=== PATIENT | male | born 1970 | race Caucasian/White ===

== ENCOUNTER 2018-10-20 10:14 | Inpatient (IN) ==
[2018-10-20] MEDS ORDERED: ASPIRIN 325 MG TABLET PO STA (10:48)
[2018-10-20] MEDS ORDERED: ONDANSETRON 4 MG/2 ML VIAL ONE (11:21)
[2018-10-20] MEDS ORDERED: ONDANSETRON 4 MG/2 ML VIAL IV STA (11:35)
[2018-10-20 11:50] LABS: Albumin 3.6 G/DL (3.4-5.0); Bilirubin,Total 8.3 MG/DL (0.2-1.0); Calcium 8.6 MG/DL (8.5-10.1); Osmolality,Calculated 254.4 MOS/KG (273-304); Potassium 3.4 MMOL/L (3.5-5.1); Total Protein 7.2 G/DL (6.4-8.3)
[2018-10-20 11:56] LABS: Basophils % 0.5 % (0.0-0.8); Eosinophils % 0.2 % (0.00-10.9); Hematocrit 38.8 VOL% (42.0-52.0); Immature Granulocytes % 0.2 %; Immature Granulocytes Absolute 0.01 #; Lymphocytes # 0.7 10*3/uL (1.4-4.0); Mean Corpuscular HGB Conc 36.1 GM/DL (32-36); Mean Corpuscular Hemoglobin 34 PG (27-34); Mean Corpuscular Volume 95.3 FL (87-102); Mean Platelet Volume 10.9 FL (9.6-12.0); Monocytes # 0.4 10*3/uL (0.11-0.8); Monocytes % 9.4 % (1.7-12.7); Neutrophils # 2.9 10*3/uL (1.4-7.4); Neutrophils % 71.7 % (38.7-73.9); Red Blood Count 4.07 MC/CUMM (3.8-5.5); Red Cell Distribution Width 12.4 % (9.3-17.3); White Blood Count 4.1 T/CUMM (4-12)
[2018-10-20 11:59] LABS: Platelet Count 61 T/CUMM (130-400)
[2018-10-20 12:21] LABS: Platelet Estimate Decreased; Polychromasia Slight; Stomatocytes Few; Tear Drop Cells Few
[2018-10-20] MEDS ORDERED: ACETAMINOPHEN 325 MG TABLET PO PRN (12:54)
[2018-10-20] MEDS ORDERED: THIAMINE 200 MG/2 ML VIAL IV STA (12:54)
[2018-10-20] MEDS ORDERED: ONDANSETRON 4 MG/2 ML VIAL IV PRN (12:54)
[2018-10-20] MEDS ORDERED: DEXTROSE 50% 25 GM/50 ML VIAL IV PRN (14:19)
[2018-10-20] MEDS ORDERED: GLUCAGON 1 MG VIAL IM PRN (14:19)
[2018-10-20 14:26] LABS: Albumin 3.6 G/DL (3.4-5.0); Bilirubin,Direct 5.98 MG/DL (0.0-0.20); Bilirubin,Indirect 2.5 MG/DL (0.0-1.0); Bilirubin,Total 8.5 MG/DL (0.2-1.0); Risk Ratio 21.2; Total Protein 7.2 G/DL (6.4-8.3)
[2018-10-20] MEDS: INSULIN LISPRO 100 UNIT/ML SUBCUT SCH ×2 (16:33→20:03)
[2018-10-20] MEDS: LORazepam 2 MG/1 ML VIAL IV PRN (16:33)
[2018-10-20 16:41] LABS: Ferritin 3630.5 ng/ml (26-388)
[2018-10-20 17:14] LABS: Hepatitis A Ab IgM Quant 0.13 Index; Hepatitis A Ab IgM Result Negative (Negative); Hepatitis B Core IgM Quant 0.13 Index; Hepatitis B Core IgM Result Negative (Negative); Hepatitis B Surface Ag Quant 0.65 Index; Hepatitis B Surface Ag Result Negative (Negative); Hepatitis C Virus Ab Quant 0.07 Index; Hepatitis C Virus Ab Result Negative (Negative)
[2018-10-20] MEDS: DOCUSATE SODIUM 100 MG CAPSULE PO SCH (22:36)
[2018-10-21 05:56] LABS: PT Patient Result 11.1 SECS
[2018-10-21 06:04] LABS: % Iron Saturation 107.8 % (18-50)
[2018-10-21 06:06] LABS: Albumin 3.4 G/DL (3.4-5.0); Bilirubin,Direct 7.69 MG/DL (0.0-0.20); Bilirubin,Indirect 3.3 MG/DL (0.0-1.0); Total Protein 7.4 G/DL (6.4-8.3)
[2018-10-21] MEDS: DOCUSATE SODIUM 100 MG CAPSULE PO SCH ×2 (08:49→21:49)
[2018-10-21] MEDS: FENOFIBRATE 145 MG TABLET PO SCH (08:49)
[2018-10-21] MEDS: INSULIN LISPRO 100 UNIT/ML SUBCUT SCH ×4 (08:49→21:48)
[2018-10-21] MEDS: PANTOPRAZOLE 40 MG TABLET PO SCH (08:50)
[2018-10-21] MEDS: ESCITALOPRAM 10 MG TABLET PO SCH (08:50)
[2018-10-21] MEDS: LORazepam 2 MG/1 ML VIAL IV PRN (08:57)
[2018-10-21] MEDS: SODIUM CHLORIDE 0.9% 1,000 ML IV SCH ×2 (11:30→18:19)
[2018-10-22] MEDS: SODIUM CHLORIDE 0.9% 1,000 ML IV SCH ×3 (02:15→16:19)
[2018-10-22 06:15] LABS: Albumin 2.9 G/DL (3.4-5.0); Bilirubin,Direct 6.76 MG/DL (0.0-0.20); Bilirubin,Indirect 1.8 MG/DL (0.0-1.0); Bilirubin,Total 8.6 MG/DL (0.2-1.0); Calcium 8.3 MG/DL (8.5-10.1); Potassium 3.3 MMOL/L (3.5-5.1); Total Protein 6.4 G/DL (6.4-8.3)
[2018-10-22] MEDS: DOCUSATE SODIUM 100 MG CAPSULE PO SCH ×2 (09:52→20:57)
[2018-10-22] MEDS: PANTOPRAZOLE 40 MG TABLET PO SCH (09:52)
[2018-10-22] MEDS: FENOFIBRATE 145 MG TABLET PO SCH (09:52)
[2018-10-22] MEDS: ESCITALOPRAM 10 MG TABLET PO SCH (09:52)
[2018-10-22] MEDS: INSULIN LISPRO 100 UNIT/ML SUBCUT SCH ×5 (10:08→21:41)
[2018-10-22] MEDS: POTASSIUM CHLORIDE 20 MEQ TABLET PO PRN ×3 (10:09→16:17)
[2018-10-22] MEDS ORDERED: MAGNESIUM SULF RIDER 2 GM in PREMIX 1 EACH IV ONE (12:30)
[2018-10-22] MEDS ORDERED: IBUPROFEN 400 MG TABLET PO PRN (12:31)
[2018-10-22] MEDS: LORazepam 2 MG/1 ML VIAL IV PRN (20:54)
[2018-10-23] MEDS: SODIUM CHLORIDE 0.9% 1,000 ML IV SCH ×4 (01:42→17:26)
[2018-10-23] MEDS: LORazepam 2 MG/1 ML VIAL IV PRN ×2 (03:36→20:04)
[2018-10-23 06:11] LABS: Albumin 2.7 G/DL (3.4-5.0); Bilirubin,Total 6.1 MG/DL (0.2-1.0); Calcium 7.8 MG/DL (8.5-10.1); Osmolality,Calculated 272.8 MOS/KG (273-304); Potassium 3.2 MMOL/L (3.5-5.1); Total Protein 6.1 G/DL (6.4-8.3)
[2018-10-23] MEDS: ESCITALOPRAM 10 MG TABLET PO SCH (09:37)
[2018-10-23] MEDS: FENOFIBRATE 145 MG TABLET PO SCH (09:37)
[2018-10-23] MEDS: PANTOPRAZOLE 40 MG TABLET PO SCH (09:38)
[2018-10-23] MEDS: DOCUSATE SODIUM 100 MG CAPSULE PO SCH ×2 (09:38→20:07)
[2018-10-23] MEDS: POTASSIUM CHLORIDE 20 MEQ TABLET PO PRN ×4 (09:38→20:06)
[2018-10-23] MEDS: INSULIN LISPRO 100 UNIT/ML SUBCUT SCH ×4 (09:39→23:58)
[2018-10-23 16:31] LABS: Basophils % 1.1 % (0.0-0.8); Eosinophils # 0.1 10*3/uL (0.0-0.87); Eosinophils % 1.4 % (0.00-10.9); Hematocrit 34.8 VOL% (42.0-52.0); Hemoglobin 11.6 GM/DL (14.0-18.0); Immature Granulocytes % 0.5 %; Immature Granulocytes Absolute 0.02 #; Lymphocytes # 0.9 10*3/uL (1.4-4.0); Lymphocytes % 24.7 % (21.2-54.2); Mean Corpuscular HGB Conc 33.3 GM/DL (32-36); Mean Corpuscular Hemoglobin 34 PG (27-34); Mean Platelet Volume 11.5 FL (9.6-12.0); Monocytes # 0.5 10*3/uL (0.11-0.8); Monocytes % 12.6 % (1.7-12.7); Neutrophils # 2.2 10*3/uL (1.4-7.4); Neutrophils % 59.7 % (38.7-73.9); Platelet Count 93 T/CUMM (130-400); Red Blood Count 3.38 MC/CUMM (3.8-5.5); Red Cell Distribution Width 13.6 % (9.3-17.3); White Blood Count 3.6 T/CUMM (4-12)
[2018-10-23 16:52] LABS: Platelet Estimate Decreased
[2018-10-23 16:53] LABS: Hypochromasia Slight; Macrocytosis 1+
[2018-10-24] MEDS: SODIUM CHLORIDE 0.9% 1,000 ML IV SCH ×2 (00:10→06:44)
[2018-10-24 07:19] LABS: Bilirubin,Total 5.2 MG/DL (0.2-1.0); Calcium 8.1 MG/DL (8.5-10.1); Osmolality,Calculated 267.1 MOS/KG (273-304); Potassium 3.9 MMOL/L (3.5-5.1); Total Protein 6.7 G/DL (6.4-8.3)
[2018-10-24] MEDS: INSULIN LISPRO 100 UNIT/ML SUBCUT SCH ×2 (07:48→11:59)
[2018-10-24] MEDS: DOCUSATE SODIUM 100 MG CAPSULE PO SCH (08:32)
[2018-10-24] MEDS: FENOFIBRATE 145 MG TABLET PO SCH (08:32)
[2018-10-24] MEDS: PANTOPRAZOLE 40 MG TABLET PO SCH (08:33)
[2018-10-24] MEDS: ESCITALOPRAM 10 MG TABLET PO SCH (08:33)
[2018-10-24] MEDS ORDERED: METOPROLOL SUCCINATE XL 50 MG TABLET PO SCH (09:00)
[2018-10-24 15:53] VITALS: BP 132/83
== END 2018-10-24 16:04 | disposition home or self-care (01) | DRG 442 ==
LOC: N.ED 10:14 → N.EDINP 12:53 → N.2E 14:17
PROVIDERS: ADMIT Family Medicine; ATTEND Family Medicine